=== PATIENT | female | born 1990 | race Asian ===

== ENCOUNTER 2022-02-23 17:43 | Emergency (ER) | payer OTHER ==
[~2022-02-23] VITALS: Ht 165.1 cm; Wt 61.4 kg
[2022-02-23] MEDS ORDERED: ACYC-138 PO (19:11)
[2022-02-23 19:23] VITALS: BP 112/65
== END 2022-02-23 19:26 | disposition home or self-care (01) ==
LOC: EMS 17:43
DX: B00.1 Herpesviral vesicular dermatitis (principal); L04.9 Acute lymphadenitis, unspecified; K13.0 Diseases of lips
CPT/HCPCS: 99283; Z7502

== ENCOUNTER 2022-11-08 00:49 | Emergency (ER) | payer OTHER ==
[~2022-11-08] VITALS: Ht 170.2 cm; Wt 62.0 kg
[~2022-11-08 00:49] MED LIST: ACYC-138 PO
[2022-11-08 01:39] LABS: APPEARANCE,URINE CLEAR (CLEAR); BILIRUBIN,URINE NEGATIVE (NEGATIVE); GLUCOSE, URINE (UA) NEGATIVE (NEGATIVE); KETONES,URINE NEGATIVE (NEGATIVE); LEUKOCYTE ESTERASE ,URINE LARGE (NEGATIVE); NITRATE,URINE NEGATIVE (NEGATIVE); OCCULT BLOOD,URINE NEGATIVE (NEGATIVE); PH,URINE 6.5 (5.0-8.0); PROTEIN,URINE NEGATIVE (NEGATIVE); SPECIFIC GRAVITIY, URINE 1.002 (1.003-1.030); UROBILINOGEN,URINE <=1.0 mg/dL (<=1.0)
[2022-11-08 01:53] LABS: BACTERIA,URINE None Seen /HPF (None Seen); RBC,URINE None Seen /HPF (0-2); SQUAMOUS EPITHELIAL CELL,UR Rare /LPF (None Seen)
[2022-11-08 03:30] VITALS: BP 122/75
[2022-11-08] MEDS ORDERED: CEPHALEXIN MONOHYDRATE 500 MG CAPSULE PO ONE (03:30)
[2022-11-08] MEDS ORDERED: CEPH-558 PO (03:45)
== END 2022-11-08 03:57 | disposition home or self-care (01) ==
LOC: EMS 00:50
DX: N39.0 Urinary tract infection, site not specified (principal)
CPT/HCPCS: 81001; 84703; 87086; 87186; 99283